=== PATIENT | female | born 1955 | race Caucasian/White ===

== ENCOUNTER 2017-04-08 09:58 | Emergency (ER) | payer BC ==
[~2017-04-08] VITALS: Ht 167.6 cm; Wt 78.0 kg
[2017-04-08 10:10] VITALS: BP_SYST 164
[2017-04-08 14:00] VITALS: BP_SYST 145
== END 2017-04-08 14:00 | disposition home or self-care (01) ==
LOC: SED 09:58
DX: J01.90 Acute sinusitis, unspecified (principal); R03.0 Elevated blood-pressure reading, without diagnosis of hypertension; F32.9 Major depressive disorder, single episode, unspecified
CPT/HCPCS: 36415; 86710; 99284